=== PATIENT | female | born 1945 | race Asian ===

== ENCOUNTER 2017-07-26 17:51 | Emergency (ER) | payer OTHER ==
[2017-07-26 18:02] VITALS: BP 146/63; PULSE 73; TEMP 98; BMI 22.8
--- NOTE | 2017-07-26 18:54 | PDOC ---
History of Present Illness - General Chief Complaint: Injury Stated Complaint: FALL/INJURY Time Seen by Provider: 07/26/17 18:43 History Source: Patient Exam Limitations: No Limitations - History of Present Illness Initial Comments: 07/26/17 18:54 CHIEF COMPLAINT: Fall HISTORY OF PRESENT ILLNESS: This is a 72 year old female with a history of HTN, HLD, NIDDM, hypothyroidism, osteoarthritis, and CABG (no anti-platelets due to PUD) who presents to the ED for evaluation accompanied by her sister following a mechanical fall. The patient reports that she tripped and denies any chest pain, dizziness, or any other symptoms prior to the fall. She fell forward striking her left forehead, shoulder, chest, and hip. She did not lose consciousness. She was assisted to a seated position by her friends. V/s on arrival are unremarkable. REVIEW OF SYSTEMS: GENERAL/CONSTITUTIONAL: No fever or chills. No weakness. No weight change. HEAD, EYES, EARS, NOSE AND THROAT: No change in vision. No ear pain or discharge. No sore throat. CARDIOVASCULAR: No chest pain or palpitations. RESPIRATORY: Pain with deep breathing. No cough, wheezing, or shortness of breath. GASTROINTESTINAL: No nausea, vomiting, diarrhea or constipation. GENITOURINARY: No dysuria, frequency, or change in urination. MUSCULOSKELETAL: Left shoulder, rib, and hip pain. SKIN: No rash or easy bruising. NEUROLOGIC: Head trauma. No vertigo, loss of consciousness, or loss of sensation. PSYCHIATRIC: No depression or anxiety. ENDOCRINE: No increased thirst. No abnormal weight change. HEMATOLOGIC/LYMPHATIC: No anemia, easy bleeding, or history of blood clots. ALLERGIC/IMMUNOLOGIC: No hives or skin allergy. No latex allergy. PHYSICAL EXAM: GENERAL: The patient is awake, alert, and fully oriented, in no acute distress. ENT: Pupils equal, round and reactive to light, extraocular movements intact, sclera anicteric, conjunctiva clear. Neck supple. LUNGS: Breath sounds equal and clear to auscultation bilaterally. Normal excursion. No respiratory distress or use of accessory muscles. Left 5th, 6th, 7th, 8th rib tenderness. CV: RRR, S1/S2, no MRG. Cap refill < 2 sec. ABDOMEN: Soft, non-distended, non-tender. EXTREMITIES: Left hip tenderness. Normal ROM of left knee. Able to elevate left arm and touch contralateral shoulder anteriorly and posteriorly. NEUROLOGICAL: Normal speech. CN II-XII grossly intact. PSYCH: Normal mood, normal affect. SKIN: Warm, dry, normal turgor, no rashes or lesions noted. Past History - Past Medical History Allergies/Adverse Reactions: Allergies Allergy/AdvReac Type Severity Reaction Status Date / Time morphine AdvReac Intermediate Nausea Verified 07/26/17 18:53 codeine AdvReac Mild Nausea Verified 07/26/17 18:53 Home Medications: Ambulatory Orders Atenolol [Tenormin] 25 mg PO ASDIR 07/26/17 Levothyroxine [Synthroid -] 50 mcg PO DAILY 07/26/17 Lidocaine 5% Patch [Lidoderm Patch -] 1 patch TP DAILY #7 patch 07/26/17 Losartan Potassium [Cozaar -] 50 mg PO DAILY 07/26/17 Metformin HCl 850 mg PO BID 07/26/17 Omeprazole 20 mg PO PRN 07/26/17 Pravastatin Sodium [Pravachol (Nf)] 40 mg PO HS 07/26/17 Tramadol HCl/Acetaminophen [Tramadol-Acetaminophn 37.5-325] 1 each PO Q8H #30 tablet MDD 3 tabs 07/26/17 Cardiac Disorders: Yes (open heart surgery 2006) - Suicide/Smoking/Psychosocial Hx Smoking History: Never smoked Have you smoked in the past 12 months: No Information on smoking cessation initiated: No Hx Alcohol Use: No Drug/Substance Use Hx: No Substance Use Type: None *Physical Exam - Vital Signs Last Vital Signs Temp Pulse Resp BP Pulse Ox 98.0 F 73 18 146/63 98 07/26/17 17:57 07/26/17 17:57 07/26/17 17:57 07/26/17 17:57 07/26/17 17:57 Medical Decision Making - Medical Decision Making 07/26/17 19:35 A/P: 72 year old female with multiple complaints s/p mechanical fall with head trauma. 1. Head CT (age >65) 2. Chest, rib, hip xrays 3. Lidoderm patch (refuses other analgesia) *DC/Admit/Observation/Transfer Diagnosis at time of Disposition: Fall Qualifiers: Encounter type: initial encounter Qualified Code(s): W19.XXXA - Unspecified fall, initial encounter; W19.XXXA - Unspecified fall, initial encounter Contusion of rib on left side Qualifiers: Encounter type: initial encounter Qualified Code(s): S20.212A - Contusion of left front wall of thorax, initial encounter; S20.212A - Contusion of left front wall of thorax, initial encounter - Discharge Dispostion Disposition: HOME Condition at time of disposition: Stable Admit: No - Prescriptions Prescriptions: Lidocaine 5% Patch [Lidoderm Patch -] 1 patch TP DAILY #7 patch Tramadol HCl/Acetaminophen [Tramadol-Acetaminophn 37.5-325] 1 each PO Q8H #30 tablet MDD 3 tabs - Referrals Referrals: Luciano Art [Primary Care Provider] - Call tomorrow - Patient Instructions Printed Discharge Instructions: DI for Rib Contusion Additional Instructions: You were seen today for a fall. CT scan of your head is NEGATIVE (normal). Preliminary reads of your hip, chest, and rib xrays are also normal. You will receive a phone call tomorrow if the radiologist's opinion differs from this. You may also call the number enclosed to follow up. Take Tramadol with acetaminophen and use lidocaine patches as prescribed for pain. When pain is controlled, do deep breathing and cough to help prevent pneumonia. Follow up with your primary care doctor this week. Return here for difficulty breathing or any other concerning symptoms.
[2017-07-26] MEDS ORDERED: LIDOCAINE 5% TOPICAL PATCH TP ONE (19:06)
[2017-07-26] MEDS ORDERED: LIDOCAINE 5% TOPICAL PATCH ONE (19:10)
[2017-07-26] MEDS ORDERED: ACETAMINOPHEN 500 MG TABLET (FP) PO ONE ×2 (19:29→20:24)
[2017-07-26] MEDS ORDERED: ACETAMINOPHEN 325 MG TABLET (FP) ONE ×2 (20:31)
[2017-07-26] MEDS ORDERED: LIDOCAINE PATCH REMOVAL MC SCH (22:00)
== END 2017-07-26 20:44 | disposition home or self-care (01) ==
LOC: JER 17:51 → JERFT 17:51
DX: S20.212A Contusion of left front wall of thorax, initial encounter (principal); I25.810 Atherosclerosis of coronary artery bypass graft(s) without angina pectoris; I10 Essential (primary) hypertension; Z95.1 Presence of aortocoronary bypass graft; E11.9 Type 2 diabetes mellitus without complications; Z79.4 Long term (current) use of insulin; E78.00 Pure hypercholesterolemia, unspecified; E03.9 Hypothyroidism, unspecified; M19.90 Unspecified osteoarthritis, unspecified site
CPT/HCPCS: 70450-TC; 71020-TC; 71101-TC; 73523-TC; 99281-25